=== PATIENT | male | born 1975 | race Hispanic/Latino ===

== ENCOUNTER 2016-04-12 06:35 | Emergency (ER) | payer BC ==
[~2016-04-12] VITALS: Ht 165.1 cm; Wt 78.1 kg
[~2016-04-12 06:35] MED LIST: COLACE100 MG PO; ZANTAC150 MG PO
[2016-04-12] MEDS ORDERED: NAPROXEN500 MG PO (08:59)
[2016-04-12 09:52] VITALS: BP 102/59
== END 2016-04-12 09:53 | disposition home or self-care (01) ==
LOC: EXP 06:35 → EME 06:35 → EXP 09:53
DX: S83.411A Sprain of medial collateral ligament of right knee, initial encounter (principal); W00.0XXA Fall on same level due to ice and snow, initial encounter
CPT/HCPCS: 73564; 99281; 99284; J1885

== ENCOUNTER 2016-07-22 12:01 | Emergency (ER) | payer BC ==
[~2016-07-22] VITALS: Ht 167.6 cm; Wt 77.7 kg
[~2016-07-22 12:01] MED LIST changes: +NAPROXEN500 MG PO
[2016-07-22 13:13] LABS: HEMATOCRIT 45.1 % (38.0-50.0); MCH 27.9 PG (29.0-34.0); MCHC 33.7 G/DL (30.0-36.0); MCV 82.9 FL (86-99); MEAN PLAT.VOLUME 9.2 uM^3 (9.0-12.4); PLATELET COUNT 267 K/uL (156-360); RBC DIS.WIDTH-CV 12.7 % (11.8-14.6); RBC DIS.WIDTH-SD 38.2 % (39-53); RED BLOOD COUNT 5.44 M/uL (4.00-5.50); WHITE BLOOD COUNT 7.9 K/uL (4.1-10.2)
[2016-07-22 13:20] LABS: CHLORIDE 102 mEq/L (99-109); POTASSIUM 3.9 mEq/L (3.7-5.4); SODIUM 136 mEq/L (136-147)
[2016-07-22 13:22] LABS: GLUCOSE 119 mg/dL (70-99)
[2016-07-22 13:24] LABS: ANION GAP 13 MEQ/L (2-14); TOTAL BILIRUBIN 1.6 mg/dL (0.0-1.0)
[2016-07-22 13:26] LABS: ALKALINE PHOSPHATASE 88 IU/L (3-129); GFR ESTIMATE (CALCULATED) > 59 mL/min/
[2016-07-22 13:27] LABS: UREA NITROGEN (BUN) 10 mg/dL (9-23)
[2016-07-22 13:29] LABS: LIPASE 20 U/L (1.0-51.0)
[2016-07-22 14:24] LABS: DIRECT BILIRUBIN 0.4 mg/dL (0.0-0.3)
[2016-07-22 14:45] LABS: ADD MIUA? NO; BILIRUBIN NEGATIVE; BLOOD NEGATIVE; COLOR YELLOW ((YELLOW)); GLUCOSE (STRIP) NEGATIVE; KETONES NEGATIVE; LEUKOCYTES NEGATIVE; NITRITE NEGATIVE; PROTEIN (STRIP) NEGATIVE; SPECIFIC GRAVITY 1.009 (1.000-1.030); UCUL ADDED? NO; UROBILINOGEN 0.2 MG/DL (0.2-1.0)
[2016-07-22] MEDS ORDERED: PHENERGAN25 MG PR (16:42)
[2016-07-22] MEDS ORDERED: BENTYL20 MG PO (16:42)
[2016-07-22] MEDS ORDERED: PROMETHAZINE HC25 M1 PO (16:42)
[2016-07-22] MEDS ORDERED: ULTRACET1 TABLET PO (16:43)
[2016-07-22 17:00] VITALS: BP 105/76
== END 2016-07-22 17:08 | disposition home or self-care (01) ==
LOC: EME 12:01
DX: R10.9 Unspecified abdominal pain (principal); R11.2 Nausea with vomiting, unspecified; R19.7 Diarrhea, unspecified
CPT/HCPCS: 74177; 80053; 81003; 82248; 83605; 83690; 85027; 87493; 87506; 99281; 99284; J1885; J2405; J7030